=== PATIENT | female | born 2000 | race Hispanic/Latino ===

== ENCOUNTER 2023-06-19 11:43 | Emergency (ER) | payer BC, SELFPAY ==
[2023-06-19 11:57] VITALS: BP 110/80
--- NOTE | 2023-06-19 15:44 | ED.CVA ---
History of Present Illness
General
Chief Complaint: CVA/TIA Symptoms
Source: patient and family
Exam Limitations: none
Time Seen by Provider: 06/19/23 15:24
Nursing documentation reviewed up to this point in time: agreed with
Onset of Stroke Symptoms
Onset of symptoms known: Yes
Date of onset of symptoms: 06/11/23
Travel History
Have you had any contact with someone who has COVID-19?: No
Do you have any symptoms of coronavirus? Fever > 100 degrees, chills, cough, shortness of breath, sore throat, loss of taste or smell, muscle aches, or headache?: No
History of Present Illness
History of Present Illness:
23-year-old female presents emergency department due to difficulty speaking since having endoscopy at [facility] on 06/11/2023. After the procedure she had slurred speech. She was hospitalized that night at both, seen by neurology
and diagnosed with complex migraine. She was discharged and family came back to the area. They saw primary care who referred her to the emergency department.
Past History
Past History
ED Past Medical History: Other (ACNES, motility disorder, rumination, vomiting)
ED Past Surgical History: None
Social History
Tobacco: Non-smoker
Alcohol: None
Drug: None
Living: with family
Review of Systems
Review of Systems
Allergies reviewed?: Yes
All Other Systems: Not applicable
Constitutional: Reports no symptoms
EENT: Reports no symptoms
Respiratory: Reports no symptoms
Cardiac: Reports no symptoms
ABD/GI: Reports no symptoms
: Reports no symptoms
Musculoskeletal: Reports no symptoms
Skin: Reports no symptoms
Neurological: Reports other (Aphasia, stuttering)
Endocrine: Reports no symptoms
Hematologic/Lymphatic: Reports no symptoms
Psychiatric: Reports no symptoms
Phy Exam
Physical Exam
Physical Exam:
Physical Exam
General: no apparent distress, not acutely ill
Neck: supple. no meningeal signs. normal posterior pharynx
Heart: s1/s2 regular rate and rhythm, no murmur. equal radial
pulses.
HEENT: Pupils equal round reactive to light, EOMI
Lungs: no acute respiratory distress. clear bilaterally
Abdomen: normal bowel sounds. not tender. no CVAT
Neuro: alert and oriented. no focal neurological deficits cranial nerves II through XII intact stuttering, aphasia
Skin: no rash
Psychiatric: well kept. interactive and cooperative
Extremities: no edema. no calf tenderness. negative homans. good distal pulses
Course
Orders/Labs/Results
Orders:
Orders
06/19/23 11:59
CT Head W/o Iv Contrast Urgent
Comment:
Reason For Exam: slurred speech
06/19/23 15:42
IV Insert/Care/Rem.- Treatment PRN
06/19/23 15:43
Electrocardiogram (*1) Urgent
Reason for Study: Other
Other Reason for Exam: provider order
EKG- Treatment ONCE
06/19/23 16:16
Complete Blood Count/With Diff Urgent
Comprehensive Metabolic Panel Urgent
Abnormal Lab Results
06/19/23
16:16
MCV 78.7 L fL
(81.0-99.0)
MCH 26.1 L pg
(27.0-31.0)
MPV 11.2 H fL
(7.4-10.4)
Glucose 68 L mg/dl
(70-99)
06/19/23 16:16
06/19/23 16:16
Vital Signs
Initial and Last Documented VS:
Initial Vital Signs
Temp Pulse Resp BP Pulse Ox
98.0 F 77 17 110/80 100
06/19/23 11:57 06/19/23 11:57 06/19/23 11:57 06/19/23 11:57 06/19/23 11:57
Last Documented Vital Signs
Temp Pulse Resp BP Pulse Ox
98.0 F 77 17 100/63 100
06/19/23 11:57 06/19/23 11:57 06/19/23 11:57 06/19/23 17:00 06/19/23 17:00
MDM/Problems Addressed
Differential Diagnosis Includes:
CVA, functional neurologic disorder
MDM/Problems Addressed:
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 No signs of CVA. Patient seen evaluated by neurology, who recommends neuropsychiatric follow-up and quetiapine. Patient stable for discharge.
Chronic conditions affecting care: Other (Chronic GI symptoms, motility disorder)
*Radiology
Radiology exam reviewed: radiology read reviewed (CT head no acute findings)
*Pulse Oximetry
Patient hypoxic: no
*EKG
Interpreted by ED Provider?: NA
*Assistant Teacher Primary Interpretation
Rate: normal
Interpretation: normal
Heart Rate: 68
Rhythm: sinus
*Critical Care Note
Total Time (30-74mins, 75-104mins- exclusive of procedures): Not Applicable
Patient Management
Social determinants of health affecting care: Living situation and Strong social support
Discussion with other providers: [employer] (Neurology, Dr. Lowry)
Escalation/DeEscalation of care consider admission/obs:
Admit not indicated
ED Attending Note
-
Portions of this chart may have been created with voice recognition software.� Occasional wrong word or��sound alike� substitutions may have occurred due to the inherent limitations of voice recognition software.
Discharge Plan
Departure
Patient Disposition: Home (Routine Discharge)
Date of Disposition: 06/19/23
Time of Disposition: 18:03
Patient with high blood pressure during this ER visit?: No
Condition: Good
Discharge Problem:
Alteration in speech
Instructions: Dysarthria
Prescriptions:
New
quetiapine 25 mg tablet
12.5 mg PO BID Qty: 15 0RF
Referrals:
Alia Judge MD [Family Provider] - Call in 1-3 days for appt
Interventions
Interventions:
*Risk Screen - Suicide Last Done: 06/19/23 15:54
*General Assessment Last Done: 06/19/23 15:54
*Neglect/Abuse Screening Last Done: 06/19/23 15:54
ED- Fall Risk Assessment Last Done: 06/19/23 15:54
*ED COVID-19 Vaccine History Last Done: 06/19/23 15:54
ED- Pulmonary Assessment Last Done: 06/19/23 15:54
ED- Neurological Assessment Last Done: 06/19/23 15:54
ED- Cardiac Assessment Last Done: 06/19/23 15:54
ED Swallowing Screen Last Done: 06/19/23 17:15
[2023-06-19 15:54] VITALS: BMI 23.5
[2023-06-19 15:57] VITALS: BP 96/53
[2023-06-19 16:00] VITALS: BP 97/59
[2023-06-19 16:24] LABS: % Basophils 0.5 % (0-2); % Eosinophils 0.8 % (0-6); % Immature Granulocytes 0.3 % (0-0.5); % Lymphocytes 39.1 % (20.5-51.1); % Monocytes 5.9 % (1.7-9.3); % Neutrophils 53.4 % (42.2-75.2); Absolute Eosinophils 0.1 10^3/uL (0-0.7); Absolute Lymphocytes 2.4 10^3/uL (1.2-3.4); Absolute Monocytes 0.4 10^3/uL (0.1-0.6); Absolute Neutrophils 3.3 10^3/uL (1.4-6.5); Hematocrit 39.5 % (37.0-47.0); Hemoglobin 13.1 g/dL (12.0-16.0); Mean Corp Hgb Conc. 33.2 g/dL (33.0-37.0); Mean Corpuscular Hgb 26.1 pg (27.0-31.0); Mean Corpuscular Volume 78.7 fL (81.0-99.0); Mean Platelet Volume 11.2 fL (7.4-10.4); Nucleated Red Blood Cells % 0 %; Platelet Count 292 10^3/uL (130-400); Red Blood Cell Count 5.02 10^6/uL (4.20-5.40); White Blood Cell Count 6.2 10^3/uL (4.8-10.8)
[2023-06-19 16:37] LABS: ALT (SGPT) 30 U/L (0-35); AST (SGOT) 25 U/L (14-36); Albumin 4.5 g/dl (3.5-5.0); Alkaline Phosphatase 38 U/L (38-126); Blood Urea Nitrogen 16 mg/dl (7-17); Calcium 9.6 mg/dl (8.4-10.2); Carbon Dioxide 30 mmol/L (22-30); Chloride 99 mmol/L (98-107); Estimated Creatinine Clearance 117 ml/min; Glucose 68 mg/dl (70-99); Sodium 139 mmol/L (135-145); Total Bilirubin 1.1 mg/dl (0.2-1.3); Total Protein 7.9 g/dl (6.3-8.2); eGFR > 60.00
[2023-06-19 17:00] VITALS: BP 100/63
--- NOTE | 2023-06-19 17:00 | CON.NEURO ---
Neuro Assessment/Plan
Assessment
IMPRESSIONS/RECOMMENDATIONS:
Abrupt change in speech, now without headache
Most likely functional neurological disorder based on variability, inconsistency
Will need outpatient neuropsychological evaluation
Provide Quetiapine 12.5 mg BID risks and benefits reviewed
Speech therapy evaluation and treatment
As needed medication for recurrence of headache
Plan
Will continue to follow patient as needed. Thank you.
Consultation
Order
Date of Consultation: 06/19/23
Requesting Provider: ED Physician
Reason for Consult: Aphasia
Subjective/Objective
Subjective Data
Date of Service: June 19, 2023
Patient's history from patient and from the patient's mother. Patient traveled to [facility] and underwent endoscopy which was reportedly marred by the patient awakening with speech changes. The patient remained at that hospital
for several days afterwards and was evaluated by a pediatric neurologist who diagnosed the patient with migraine with aura and that the patient was experiencing a poor outcome due to anesthesia effect. The patient had significant improvement in
speech however it was not normalized at the time of discharge. They then presented to PCP and instructed to undergo MRI of brain.
Speech has been worsening over time due to longer time frame to produce words.
No other known modifying factors or associated symptoms. Patient is no longer experiencing any headache.
Objective Data
Vital Signs
Temp Pulse Resp BP Pulse Ox
36.7 C 77 17 110/80 100
06/19/23 11:57 06/19/23 11:57 06/19/23 11:57 06/19/23 11:57 06/19/23 11:57
Lab Results
06/19/23 16:16
06/19/23 16:16
Sodium 139 mmol/L (135-145) 06/19/23 16:16
Potassium 4.0 mmol/L (3.5-5.1) 06/19/23 16:16
BUN 16 mg/dl (7-17) 06/19/23 16:16
Glucose 68 mg/dl (70-99) L 06/19/23 16:16
Calcium 9.6 mg/dl (8.4-10.2) 06/19/23 16:16
Patient Allergies
No Known Allergies Allergy (Unverified 06/19/23 11:58)
Modified Encinal Score (MRS)
-
MRS Score:
Review of Systems
-
History Source: Patient and Family
All other systems: Reviewed and negative
EENT: Negative Decreased Vision
Respiratory: Negative Trouble Breathing
Cardiac: Negative Chest Pain
Abdomen/GI: Negative Incontinence of Stool
Genitourinary: Negative Incontinence
Musculoskeletal: Negative Back Pain or Neck Pain
Neuro: Negative Dizzy or Headache
Physical Exam
-
General: No Apparent Distress and Appears Stated Age
Eyes: OU Absent Papilledema, Round OU, Annetta Conjunctivae and No Ptosis
HEENT: Anicteric and Moist Mucous Membranes
Neck: Full Range of Motion
Respiratory: No Dyspnea
Cardiac: No JVD
GI: Non-distended
Skin: Unremarkable
Extremities: No Clubbing, No Cyanosis and No Edema
Psych: Negative Intact Judgement/Insight
Extended Neurological Exam
Mood & Affect: Mood Unremarkable and Affect Unremarkable
Attention Span & Concentration: Awake, Alert, Interactive and No Difficulty with 2 Step Request
Memory: Unremarkable
Tremor: Hand Tremor Absent and Head Tremor Absent
Involuntary Movement: None
Speech: Quantity Unremarkable and Other (Stuttering with the first syllable of each word with exception of small words and conjunctions without variability. No difficulty with reading with the exception of continued stuttering)
Cranial Nerve II: Left Eye: Pupillary Reactivity Unremarkable, Pupillary Size Unremarkable and Visual Styles Intact
Cranial Nerve II: Right Eye: Pupillary Reactivity Unremarkable, Pupillary Size Unremarkable and Visual Styles Intact
Cranial Nerves III, IV, : Extraocular Movement: Extraocular Movement Full in all Directions
Cranial Nerve VII: Facial Symmetry: Normal Facial Symmetry
Cranial Nerve VIII: Hearing: Unremarkable Hearing to Normal Conversational Volume
Cranial Nerves IX, X: Palate Movement: Palate Elevation Symmetric
Cranial Nerve XI: Shoulder Shrug: Unremarkable
Cranial Nerve XII: Tongue Protusion: Midline
Muscle Strength, Overall: Full Throughout
Muscle Bulk & Tone: Bulk Unremarkable and Tone Unremarkable
Pronator Drift: No Drift in Upper Extremities
Deep Tendon Reflexes: Unremarkable Throughout
Touch Sensation: Unremarkable
Coordination: [id number] Testing Unremarkable and [id number] movements intact bilaterally
Babinski Sign: Absent Bilaterally
Data Reviewed
-
CT Head: Report Reviewed
Labs: Report Reviewed
Reviewed with: Physician, Patient and Family
Old Records: Summarized
[2023-06-19 18:00] VITALS: BP 100/61
== END 2023-06-19 18:34 | disposition home or self-care (01) ==
LOC: EMR 11:43
PROVIDERS: EMERGENCY PHYSICIAN Emergency Medicine; FAMILY PHYSICIAN Psychologist Clinical
DX: R47.89 Other speech disturbances (principal)
CPT/HCPCS: 99285; 70450; 80053; 85025; 93005